=== PATIENT | male | born 1965 ===

== ENCOUNTER 2020-12-27 06:00 | Day surgery (SDC) | payer OTHER ==
[~2020-12-27 06:00] MED LIST: PEPCID AC10 MG PO; PROTONIX20 MG PO
[2020-12-27] MEDS ORDERED: RECTICARE30 GM TOP (08:25)
[2020-12-27] MEDS ORDERED: PERCOCET 5-3251 EACH PO (08:25)
== END 2020-12-27 16:35 | disposition home or self-care (01) ==
LOC: CIR.AMB 06:00
PROVIDERS: ATTEND Surgery
DX: K62.82 Dysplasia of anus (principal); A63.0 Anogenital (venereal) warts; Z20.822 Contact with and (suspected) exposure to COVID-19